=== PATIENT | female | born 1945 | race Caucasian/White ===

== ENCOUNTER 2018-08-19 07:11 | Inpatient (IN) ==
[2018-08-19] MEDS ORDERED: methylPREDNISolone 125 MG/2 ML VIAL IVP ONE (07:25)
[2018-08-19] MEDS ORDERED: cefTRIAXone 1,000 MG in Water for inj. (sterile) 20 ML 10 ML IVP ONE (07:25)
[2018-08-19] MEDS ORDERED: Ipratropium/Albuterol Neb 3 ML IH ONE (07:25)
[2018-08-19] MEDS ORDERED: Azithromycin 250 MG TABLET PO ONE (07:25)
[2018-08-19] MEDS ORDERED: *HR* LORazepam 2 MG/ML VIAL IVP ONE (07:28)
--- NOTE | 2018-08-19 07:33 | Emergency Department Note ---
Disposition Clinical Impression: Acute exacerbation of chronic obstructive airways disease, Acute respiratory failure with hypoxia Community acquired pneumonia Qualifiers: Laterality: unspecified laterality Qualified Code(s): J18.9 - Pneumonia, unspecified organism UTI (urinary tract infection) Qualifiers: Urinary tract infection type: acute cystitis Hematuria presence: without hematuria Qualified Code(s): N30.00 - Acute cystitis without hematuria Disposition: Admitted As Inpatient Condition: Fair Time of Disposition: 10:55 General Adult HPI - General Chief complaint: ED Shortness of Breath/Dyspnea Stated complaint: Difficult Breathing Time Seen by Provider: 08/19/18 07:12 Source: EMS Mode of arrival: ambulatory Limitations: no limitations Nursing Notes Reviewed: Yes Vital Signs Reviewed: Yes - History of Present Illness HPI Narrative: Ms Wellington is a 72yo female who comes in by EMS for the chief complaint of SOB. She states it has been getting worse since X-mas and she has had increasing SOB. She states that she hasn't been taking her nebulizer tx as directed but over the last few days has been increasing duonebs to QID. She states that she has been coughing more frequently, however, she is hardly brining up any sputum. She is unsure of what color it is when she does bring it up. She also states that she requires oxygen 24/7. She uses 2.5L at baseline but requires 3L when she tries to do anything. She is SOB no matter what activity she does and is SOB at rest. She states her anxiety has been very bad since x-mas as well and that she was exposed to a lot of people over the holidays and that the cold weather also seemed to bother her a lot. She denies any fever/chills. She states she is chronically nauseated. She had one episode of emesis this morning. Denies active chest pain/abd pain. She denies any sick contacts. She denies recent hospitilization in the last 90days. Pt Subjective Complaint: trouble breathing Pain Scale: 8 - Related Data Home Medications Medication Instructions Recorded Confirmed ALPRAZolam [Xanax 0.5 MG Tablet] 0.5 mg PO TID PRN 08/19/18 08/19/18 Albuterol Sulfate [Albuterol 1 - 2 puff IH Q4-6H PRN 08/19/18 08/19/18 Inhaler] Atorvastatin [Lipitor] 10 mg PO HS 12/27/18 12/27/18 Cholecalciferol (D-3) [Vitamin D] 4,000 unit PO DAILY 08/19/18 08/19/18 Gabapentin [Neurontin] 300 mg PO TID 08/19/18 08/19/18 Ipratropium/Albuterol Sulfate 3 ml IH QID PRN 08/19/18 08/19/18 [Iprat-Albut 0.5-3(2.5) mg/3 ml] Mometasone/Formoterol [Dulera 200 2 puff IH BID 08/19/18 08/19/18 Mcg/5 Mcg Inhaler] Montelukast [Singulair] 10 mg PO DAILY 08/19/18 08/19/18 Omeprazole [PriLOSEC] 40 mg PO DAILY 08/19/18 08/19/18 Allergies Allergy/AdvReac Type Severity Reaction Status Date / Time fluticasone Allergy Headache Verified 06/10/17 15:01 [From Advair Diskus] iodine Allergy Rash Verified 06/10/17 15:01 salmeterol Allergy Headache Verified 06/10/17 15:01 [From Advair Diskus] aspirin AdvReac can't take Verified 06/10/17 15:01 because of her asthma Constitutional: Reports: weakness. Denies: fever, chills Eyes: Reports: eye pain, vision change (secondary to cataracts) ENT ED: Reports: congestion Cardiovascular: Reports: dyspnea on exertion. Denies: chest pain, palpitations Respiratory: Reports: cough, dyspnea, wheezes. Denies: sputum production Gastrointestinal: Reports: nausea, vomiting. Denies: abdominal pain, diarrhea Genitourinary: Denies: urgency, dysuria Musculoskeletal: Reports: joint swelling Integumentary: Denies: lesions Neurological: Reports: weakness Psychiatric: Reports: anxiety, depression Endocrine: Reports: fatigue Hematological/Lymphatic: Denies: easy bleeding, easy bruising Past Medical History - Past Medical History Medical history: Reports: arthritis, asthma, COPD Psychiatric history: Reports: anxiety, bipolar, depression [employer] history: Reports: bilateral tubal ligation - Social History Smoking Status: Former smoker Smokeless Tobacco Status: No Alcohol use: Reports: none Drug use: Reports: none Physical Exam - General Limitations: no limitations General appearance: alert, anxious, other (sitting in bed, very anxious, has a difficult time speaking in full sentences, in mild respiratory distress) - Head Head exam: atraumatic, normocephalic - Eye Eye exam: Present: normal appearance. Absent: scleral icterus - ENT ENT exam: mucous membranes dry - Neck Neck exam: Present: normal inspection - Chest Chest inspection: Present: normal inspection, symmetric chest wall rise - Respiratory Respiratory exam: Present: respiratory distress, wheezes, accessory muscle use, prolonged expiratory phase - Cardiovascular Cardiovascular exam: Present: tachycardia, +S1, +S2. Absent: rubs, gallop, clicks, JVD - Abdominal Exam Abdominal exam: Present: soft, Non-Tender. Absent: tenderness, distention, guarding, rebound, rigidity - Extremities Exam Extremities exam: Present: tenderness, normal capillary refill, pedal edema, joint swelling, other (multiple defects in the joints from rheumatoid arthritis) - Expanded Lower Extremity Exam Lower leg exam: Present: other (no calf tenderness). Absent: Homans' sign - Neurological Exam Neurological exam: Present: alert, oriented X3, CN II-XII intact - Psychiatric Psychiatric exam: Present: anxious - Skin Skin exam: Present: warm, dry, intact Course - Reevaluation(s) Reevaluation #1: Re-evaluated the patient. She continues to have elevated RR and HR, however, she appears much less anxious and accessory mm of respiration use has decreased. She states that her anxiety feels much better. Time: 08:02 Vital Signs Temperature 98.9 F 08/19/18 07:16 Pulse Rate 124 08/19/18 07:16 Respiratory Rate 24 08/19/18 07:16 Blood Pressure 114/102 08/19/18 07:16 O2 Sat by Pulse Oximetry 93 08/19/18 07:16 Temperature 98.9 F 08/19/18 07:16 Pulse Rate 121 08/19/18 10:12 Respiratory Rate 23 08/19/18 10:12 Blood Pressure 162/84 08/19/18 10:12 O2 Sat by Pulse Oximetry 97 08/19/18 10:12 Oxygen Delivery Oxygen Delivery Nasal Cannula Medical Decision Making - MDM Narrative Medical decision making narrative: The patient is here for shortness of breath. She has chronic SOB secondary to end stage COPD. Her symptoms have been worsening since x-mas and she has had increasing SOB over the last few days which she attributes to her anxiety. She does tell ER staff that she lost her daughter a year ago on x-mas, which has brought on a lot of her troubles with her breathing. Pt meets sepsis criteria for HR/RR. Lactate elevated at 2.5. Bolus fluid given. Azithromycin/Rocephin given in the ER. Her CXR showed changes secondary to COPD and is negative for acute pneumonia. UA (+) for infxn with nitrates, leuk esterase and WBC. D-dimer was elevated and CT angiogram performed, negative for PE. She will be admitted to medicine service. Accepting hospitalist is Dr Granados. - Medical Records Medical records reviewed: Yes I reviewed the patient's medical records. - Lab Data Lab results reviewed: Yes I reviewed the patient's lab results. Result diagrams: 08/19/18 07:38 08/19/18 07:38 Lab Results 08/19/18 08/19/18 08/19/18 Range/Units 07:38 07:38 07:38 WBC 7.9 (4.3-11.1) K/mcL RBC 4.14 (3.82-4.97) M/mcL Hgb 11.8 (11.5-15.4) g/dL Hct 37.3 (35.3-44.9) % MCV 90.1 (83.0-100.0) fL MCH 28.5 (28.0-33.3) pg MCHC 31.6 (31.6-35.5) g/dL RDW 14.2 (11.5-14.5) % Plt Count 294 (140-400) K/mcL MPV 9.5 (9.4-12.4) fL Immature Gran % 0.3 (0-4) % Seg Neutrophils % 87.6 % Lymphocytes % 6.8 % Monocytes % 5.2 % Eosinophils % 0.0 % Basophils % 0.1 % Neutrophils # 6.9 (1.6-8.9) K/mcL Lymphocytes # 0.5 L (0.6-4.6) K/mcL Monocytes # 0.4 (0.0-1.3) K/mcL Eosinophils # 0.0 (0.0-0.6) K/mcL Basophils # 0.0 (0.0-0.2) K/mcL D-Dimer (0-500) ng/mLFEU Sodium 136 137 (136-145) mEq/L Potassium 4.5 4.5 (3.5-5.1) mEq/L Chloride 102 102 (98-107) mEq/L Carbon Dioxide 27 26 (23-29) mEq/L BUN 17 16 (8-23) mg/dL Creatinine 0.63 0.64 (0.60-1.20) mg/dL Est GFR ( Amer) > 60 > 60 (> 60) Est GFR (Non-Af Amer) > 60 > 60 (> 60) BUN/Creatinine Ratio 27 H 25 (6-26) Glucose 177 H 177 H (70-105) mg/dL Calculated Osmolality 288 290 (280-300) Lactic Acid (0.5-2.2) mmol/L Calcium 10.4 H 10.4 H (8.6-10.3) mg/dL Total Bilirubin 0.3 (0.3-1.0) mg/dL AST 14 (13-39) Units/L ALT 15 (7-52) Units/L Alkaline Phosphatase 97 (34-104) Units/L Troponin I < 0.03 (< 0.04) ng/mL B-Natriuretic Peptide (Less than 100) pg/mL Serum Total Protein 6.9 (6.4-8.9) g/dL Albumin 4.3 (3.5-5.7) g/dL Globulin 2.6 (2.4-3.5) g/dL Albumin/Globulin Ratio 1.7 (1.1-2.2) Urine Color (Yellow) Urine Clarity (Clear) Urine pH (5.0-8.0) pH Units Ur Specific [place] (1.010-1.025) Urine Protein (Neg-Trace) mg/dL Urine Glucose (UA) (Normal) mg/dL Urine Ketones (Negative) mg/dL Urine Blood (Negative) Urine Nitrite (Negative) Urine Bilirubin (Negative) Urine Urobilinogen (Normal) mg/dL Ur Leukocyte Esterase (Negative) Urine Microscopic RBC (0-3) per hpf Urine Microscopic WBC (0-3) per hpf Ur Squamous Epith Cells (None-Few) per lpf Urine Bacteria (None-Few) per hpf Hyaline Casts (None-Few) per lpf Ur Culture Indicated? (NO) 08/19/18 08/19/18 08/19/18 Range/Units 07:38 07:38 07:49 WBC (4.3-11.1) K/mcL RBC (3.82-4.97) M/mcL Hgb (11.5-15.4) g/dL Hct (35.3-44.9) % MCV (83.0-100.0) fL MCH (28.0-33.3) pg MCHC (31.6-35.5) g/dL RDW (11.5-14.5) % Plt Count (140-400) K/mcL MPV (9.4-12.4) fL Immature Gran % (0-4) % Seg Neutrophils % % Lymphocytes % % Monocytes % % Eosinophils % % Basophils % % Neutrophils # (1.6-8.9) K/mcL Lymphocytes # (0.6-4.6) K/mcL Monocytes # (0.0-1.3) K/mcL Eosinophils # (0.0-0.6) K/mcL Basophils # (0.0-0.2) K/mcL D-Dimer 860 H (0-500) ng/mLFEU Sodium (136-145) mEq/L Potassium (3.5-5.1) mEq/L Chloride (98-107) mEq/L Carbon Dioxide (23-29) mEq/L BUN (8-23) mg/dL Creatinine (0.60-1.20) mg/dL Est GFR ( Amer) (> 60) Est GFR (Non-Af Amer) (> 60) BUN/Creatinine Ratio (6-26) Glucose (70-105) mg/dL Calculated Osmolality (280-300) Lactic Acid 2.5 H (0.5-2.2) mmol/L Calcium (8.6-10.3) mg/dL Total Bilirubin (0.3-1.0) mg/dL AST (13-39) Units/L ALT (7-52) Units/L Alkaline Phosphatase (34-104) Units/L Troponin I (< 0.04) ng/mL B-Natriuretic Peptide 38 (Less than 100) pg/mL Serum Total Protein (6.4-8.9) g/dL Albumin (3.5-5.7) g/dL Globulin (2.4-3.5) g/dL Albumin/Globulin Ratio (1.1-2.2) Urine Color (Yellow) Urine Clarity (Clear) Urine pH (5.0-8.0) pH Units Ur Specific [place] (1.010-1.025) Urine Protein (Neg-Trace) mg/dL Urine Glucose (UA) (Normal) mg/dL Urine Ketones (Negative) mg/dL Urine Blood (Negative) Urine Nitrite (Negative) Urine Bilirubin (Negative) Urine Urobilinogen (Normal) mg/dL Ur Leukocyte Esterase (Negative) Urine Microscopic RBC (0-3) per hpf Urine Microscopic WBC (0-3) per hpf Ur Squamous Epith Cells (None-Few) per lpf Urine Bacteria (None-Few) per hpf Hyaline Casts (None-Few) per lpf Ur Culture Indicated? (NO) 08/19/18 08/19/18 Range/Units 09:56 10:05 WBC (4.3-11.1) K/mcL RBC (3.82-4.97) M/mcL Hgb (11.5-15.4) g/dL Hct (35.3-44.9) % MCV (83.0-100.0) fL MCH (28.0-33.3) pg MCHC (31.6-35.5) g/dL RDW (11.5-14.5) % Plt Count (140-400) K/mcL MPV (9.4-12.4) fL Immature Gran % (0-4) % Seg Neutrophils % % Lymphocytes % % Monocytes % % Eosinophils % % Basophils % % Neutrophils # (1.6-8.9) K/mcL Lymphocytes # (0.6-4.6) K/mcL Monocytes # (0.0-1.3) K/mcL Eosinophils # (0.0-0.6) K/mcL Basophils # (0.0-0.2) K/mcL D-Dimer (0-500) ng/mLFEU Sodium (136-145) mEq/L Potassium (3.5-5.1) mEq/L Chloride (98-107) mEq/L Carbon Dioxide (23-29) mEq/L BUN (8-23) mg/dL Creatinine (0.60-1.20) mg/dL Est GFR ( Amer) (> 60) Est GFR (Non-Af Amer) (> 60) BUN/Creatinine Ratio (6-26) Glucose (70-105) mg/dL Calculated Osmolality (280-300) Lactic Acid 3.0 H (0.5-2.2) mmol/L Calcium (8.6-10.3) mg/dL Total Bilirubin (0.3-1.0) mg/dL AST (13-39) Units/L ALT (7-52) Units/L Alkaline Phosphatase (34-104) Units/L Troponin I (< 0.04) ng/mL B-Natriuretic Peptide (Less than 100) pg/mL Serum Total Protein (6.4-8.9) g/dL Albumin (3.5-5.7) g/dL Globulin (2.4-3.5) g/dL Albumin/Globulin Ratio (1.1-2.2) Urine Color Yellow (Yellow) Urine Clarity Clear (Clear) Urine pH 6.5 (5.0-8.0) pH Units Ur Specific [place] > 1.030 H (1.010-1.025) Urine Protein Negative (Neg-Trace) mg/dL Urine Glucose (UA) Normal (Normal) mg/dL Urine Ketones Negative (Negative) mg/dL Urine Blood Negative (Negative) Urine Nitrite Positive A (Negative) Urine Bilirubin Negative (Negative) Urine Urobilinogen Normal (Normal) mg/dL Ur Leukocyte Esterase Moderate H (Negative) Urine Microscopic RBC 0-3 (0-3) per hpf Urine Microscopic WBC 30-50 H (0-3) per hpf Ur Squamous Epith Cells None Seen (None-Few) per lpf Urine Bacteria Few (None-Few) per hpf Hyaline Casts None Seen (None-Few) per lpf Ur Culture Indicated? YES A (NO) - Radiology Data Radiology results reviewed: Yes I reviewed the patient's radiology results. - EKG Data EKG #1 EKG shows normal: sinus rhythm Rate: tachycardia Rhythm: NSR, PVC's [place]/QRS: normal When compared to previous EKG there are: no significant changes Interpretation: no acute changes Attestation Statement - Attestation Attestation: I, De Strickland DO, examined this patient [id number] and my medical decision-making was reviewed with True Doshi PGY-1, Resident Physician. I agree with the documented findings, disposition and treatment plan as described except to the extent set forth below. Please see my progress notes for details.
[2018-08-19 07:46] LABS: Basophils % 0.1 %; Hematocrit 37.3 % (35.3-44.9); Hemoglobin 11.8 g/dL (11.5-15.4); Immature Granulocytes % 0.3 % (0-4); Lymphocytes # 0.5 K/mcL (0.6-4.6); Lymphocytes % 6.8 %; Mean Corpuscular HGB Conc 31.6 g/dL (31.6-35.5); Mean Corpuscular Hemoglobin 28.5 pg (28.0-33.3); Mean Corpuscular Volume 90.1 fL (83.0-100.0); Mean Platelet Volume 9.5 fL (9.4-12.4); Monocytes # 0.4 K/mcL (0.0-1.3); Monocytes % 5.2 %; Neutrophils # 6.9 K/mcL (1.6-8.9); Platelet Count 294 K/mcL (140-400); Red Blood Count 4.14 M/mcL (3.82-4.97); Red Cell Distribution Width 14.2 % (11.5-14.5); Segmented Neutrophils % 87.6 %
--- NOTE | 2018-08-19 07:56 | Emergency Department Note ---
Disposition Clinical Impression: Acute exacerbation of chronic obstructive airways disease, Community acquired pneumonia, Acute respiratory failure with hypoxia Disposition: Admitted As Inpatient Condition: Fair Referrals: Slim Whitmore DO [Resident] - Forms: ED Satisfaction Letter Time of Disposition: 10:58 General Adult HPI - General Chief complaint: ED Shortness of Breath/Dyspnea Stated complaint: Difficult Breathing Time Seen by Provider: 08/19/18 07:12 Source: EMS Mode of arrival: ambulatory Limitations: no limitations - History of Present Illness Pain Scale: 8 - Related Data Home Medications Medication Instructions Recorded Confirmed ALPRAZolam [Xanax 0.5 MG Tablet] 0.5 mg PO TID PRN 08/19/18 08/19/18 Albuterol Sulfate [Albuterol 1 - 2 puff IH Q4-6H PRN 08/19/18 08/19/18 Inhaler] Atorvastatin [Lipitor] 10 mg PO HS 08/19/18 08/19/18 Cholecalciferol (D-3) [Vitamin D] 4,000 unit PO DAILY 08/19/18 08/19/18 Gabapentin [Neurontin] 300 mg PO TID 08/19/18 08/19/18 Ipratropium/Albuterol Sulfate 3 ml IH QID PRN 08/19/18 08/19/18 [Iprat-Albut 0.5-3(2.5) mg/3 ml] Mometasone/Formoterol [Dulera 200 2 puff IH BID 08/19/18 08/19/18 Mcg/5 Mcg Inhaler] Montelukast [Singulair] 10 mg PO DAILY 08/19/18 08/19/18 Omeprazole [PriLOSEC] 40 mg PO DAILY 08/19/18 08/19/18 Allergies Allergy/AdvReac Type Severity Reaction Status Date / Time fluticasone Allergy Headache Verified 06/10/17 15:01 [From Advair Diskus] iodine Allergy Rash Verified 06/10/17 15:01 salmeterol Allergy Headache Verified 06/10/17 15:01 [From Advair Diskus] aspirin AdvReac can't take Verified 06/10/17 15:01 because of her asthma Constitutional: Reports: weakness. Denies: fever, chills Eyes: Reports: eye pain, vision change (secondary to cataracts) ENT ED: Reports: congestion Cardiovascular: Reports: dyspnea on exertion. Denies: chest pain, palpitations Respiratory: Reports: cough, dyspnea, wheezes. Denies: sputum production Gastrointestinal: Reports: nausea, vomiting. Denies: abdominal pain, diarrhea Genitourinary: Denies: urgency, dysuria Musculoskeletal: Reports: joint swelling Integumentary: Denies: lesions Neurological: Reports: weakness Psychiatric: Reports: anxiety, depression Endocrine: Reports: fatigue Hematological/Lymphatic: Denies: easy bleeding, easy bruising Past Medical History - Past Medical History Medical history: Reports: arthritis, asthma, COPD Psychiatric history: Reports: anxiety, bipolar, depression [employer] history: Reports: bilateral tubal ligation - Social History Smoking Status: Former smoker Smokeless Tobacco Status: No Alcohol use: Reports: none Drug use: Reports: none Physical Exam - General Limitations: no limitations General appearance: alert, anxious, other (sitting in bed, very anxious, has a difficult time speaking in full sentences, in mild respiratory distress) Course Vital Signs Temperature 98.9 F 08/19/18 07:16 Pulse Rate 124 08/19/18 07:16 Respiratory Rate 24 08/19/18 07:16 Blood Pressure 114/102 08/19/18 07:16 O2 Sat by Pulse Oximetry 93 08/19/18 07:16 Temperature 98.9 F 08/19/18 07:16 Pulse Rate 121 08/19/18 10:12 Respiratory Rate 23 08/19/18 10:12 Blood Pressure 162/84 08/19/18 10:12 O2 Sat by Pulse Oximetry 97 08/19/18 10:12 Oxygen Delivery Oxygen Delivery Nasal Cannula Medical Decision Making - Lab Data Result diagrams: 08/19/18 07:38 08/19/18 07:38 Lab Results 08/19/18 08/19/18 08/19/18 Range/Units 07:38 07:38 07:38 WBC 7.9 (4.3-11.1) K/mcL RBC 4.14 (3.82-4.97) M/mcL Hgb 11.8 (11.5-15.4) g/dL Hct 37.3 (35.3-44.9) % MCV 90.1 (83.0-100.0) fL MCH 28.5 (28.0-33.3) pg MCHC 31.6 (31.6-35.5) g/dL RDW 14.2 (11.5-14.5) % Plt Count 294 (140-400) K/mcL MPV 9.5 (9.4-12.4) fL Immature Gran % 0.3 (0-4) % Seg Neutrophils % 87.6 % Lymphocytes % 6.8 % Monocytes % 5.2 % Eosinophils % 0.0 % Basophils % 0.1 % Neutrophils # 6.9 (1.6-8.9) K/mcL Lymphocytes # 0.5 L (0.6-4.6) K/mcL Monocytes # 0.4 (0.0-1.3) K/mcL Eosinophils # 0.0 (0.0-0.6) K/mcL Basophils # 0.0 (0.0-0.2) K/mcL D-Dimer (0-500) ng/mLFEU Sodium 136 137 (136-145) mEq/L Potassium 4.5 4.5 (3.5-5.1) mEq/L Chloride 102 102 (98-107) mEq/L Carbon Dioxide 27 26 (23-29) mEq/L BUN 17 16 (8-23) mg/dL Creatinine 0.63 0.64 (0.60-1.20) mg/dL Est GFR ( Amer) > 60 > 60 (> 60) Est GFR (Non-Af Amer) > 60 > 60 (> 60) BUN/Creatinine Ratio 27 H 25 (6-26) Glucose 177 H 177 H (70-105) mg/dL Calculated Osmolality 288 290 (280-300) Lactic Acid (0.5-2.2) mmol/L Calcium 10.4 H 10.4 H (8.6-10.3) mg/dL Total Bilirubin 0.3 (0.3-1.0) mg/dL AST 14 (13-39) Units/L ALT 15 (7-52) Units/L Alkaline Phosphatase 97 (34-104) Units/L Troponin I < 0.03 (< 0.04) ng/mL B-Natriuretic Peptide (Less than 100) pg/mL Serum Total Protein 6.9 (6.4-8.9) g/dL Albumin 4.3 (3.5-5.7) g/dL Globulin 2.6 (2.4-3.5) g/dL Albumin/Globulin Ratio 1.7 (1.1-2.2) Urine Color (Yellow) Urine Clarity (Clear) Urine pH (5.0-8.0) pH Units Ur Specific [place] (1.010-1.025) Urine Protein (Neg-Trace) mg/dL Urine Glucose (UA) (Normal) mg/dL Urine Ketones (Negative) mg/dL Urine Blood (Negative) Urine Nitrite (Negative) Urine Bilirubin (Negative) Urine Urobilinogen (Normal) mg/dL Ur Leukocyte Esterase (Negative) Urine Microscopic RBC (0-3) per hpf Urine Microscopic WBC (0-3) per hpf Ur Squamous Epith Cells (None-Few) per lpf Urine Bacteria (None-Few) per hpf Hyaline Casts (None-Few) per lpf Ur Culture Indicated? (NO) 08/19/18 08/19/18 08/19/18 Range/Units 07:38 07:38 07:49 WBC (4.3-11.1) K/mcL RBC (3.82-4.97) M/mcL Hgb (11.5-15.4) g/dL Hct (35.3-44.9) % MCV (83.0-100.0) fL MCH (28.0-33.3) pg MCHC (31.6-35.5) g/dL RDW (11.5-14.5) % Plt Count (140-400) K/mcL MPV (9.4-12.4) fL Immature Gran % (0-4) % Seg Neutrophils % % Lymphocytes % % Monocytes % % Eosinophils % % Basophils % % Neutrophils # (1.6-8.9) K/mcL Lymphocytes # (0.6-4.6) K/mcL Monocytes # (0.0-1.3) K/mcL Eosinophils # (0.0-0.6) K/mcL Basophils # (0.0-0.2) K/mcL D-Dimer 860 H (0-500) ng/mLFEU Sodium (136-145) mEq/L Potassium (3.5-5.1) mEq/L Chloride (98-107) mEq/L Carbon Dioxide (23-29) mEq/L BUN (8-23) mg/dL Creatinine (0.60-1.20) mg/dL Est GFR ( Amer) (> 60) Est GFR (Non-Af Amer) (> 60) BUN/Creatinine Ratio (6-26) Glucose (70-105) mg/dL Calculated Osmolality (280-300) Lactic Acid 2.5 H (0.5-2.2) mmol/L Calcium (8.6-10.3) mg/dL Total Bilirubin (0.3-1.0) mg/dL AST (13-39) Units/L ALT (7-52) Units/L Alkaline Phosphatase (34-104) Units/L Troponin I (< 0.04) ng/mL B-Natriuretic Peptide 38 (Less than 100) pg/mL Serum Total Protein (6.4-8.9) g/dL Albumin (3.5-5.7) g/dL Globulin (2.4-3.5) g/dL Albumin/Globulin Ratio (1.1-2.2) Urine Color (Yellow) Urine Clarity (Clear) Urine pH (5.0-8.0) pH Units Ur Specific [place] (1.010-1.025) Urine Protein (Neg-Trace) mg/dL Urine Glucose (UA) (Normal) mg/dL Urine Ketones (Negative) mg/dL Urine Blood (Negative) Urine Nitrite (Negative) Urine Bilirubin (Negative) Urine Urobilinogen (Normal) mg/dL Ur Leukocyte Esterase (Negative) Urine Microscopic RBC (0-3) per hpf Urine Microscopic WBC (0-3) per hpf Ur Squamous Epith Cells (None-Few) per lpf Urine Bacteria (None-Few) per hpf Hyaline Casts (None-Few) per lpf Ur Culture Indicated? (NO) 08/19/18 08/19/18 Range/Units 09:56 10:05 WBC (4.3-11.1) K/mcL RBC (3.82-4.97) M/mcL Hgb (11.5-15.4) g/dL Hct (35.3-44.9) % MCV (83.0-100.0) fL MCH (28.0-33.3) pg MCHC (31.6-35.5) g/dL RDW (11.5-14.5) % Plt Count (140-400) K/mcL MPV (9.4-12.4) fL Immature Gran % (0-4) % Seg Neutrophils % % Lymphocytes % % Monocytes % % Eosinophils % % Basophils % % Neutrophils # (1.6-8.9) K/mcL Lymphocytes # (0.6-4.6) K/mcL Monocytes # (0.0-1.3) K/mcL Eosinophils # (0.0-0.6) K/mcL Basophils # (0.0-0.2) K/mcL D-Dimer (0-500) ng/mLFEU Sodium (136-145) mEq/L Potassium (3.5-5.1) mEq/L Chloride (98-107) mEq/L Carbon Dioxide (23-29) mEq/L BUN (8-23) mg/dL Creatinine (0.60-1.20) mg/dL Est GFR ( Amer) (> 60) Est GFR (Non-Af Amer) (> 60) BUN/Creatinine Ratio (6-26) Glucose (70-105) mg/dL Calculated Osmolality (280-300) Lactic Acid 3.0 H (0.5-2.2) mmol/L Calcium (8.6-10.3) mg/dL Total Bilirubin (0.3-1.0) mg/dL AST (13-39) Units/L ALT (7-52) Units/L Alkaline Phosphatase (34-104) Units/L Troponin I (< 0.04) ng/mL B-Natriuretic Peptide (Less than 100) pg/mL Serum Total Protein (6.4-8.9) g/dL Albumin (3.5-5.7) g/dL Globulin (2.4-3.5) g/dL Albumin/Globulin Ratio (1.1-2.2) Urine Color Yellow (Yellow) Urine Clarity Clear (Clear) Urine pH 6.5 (5.0-8.0) pH Units Ur Specific [place] > 1.030 H (1.010-1.025) Urine Protein Negative (Neg-Trace) mg/dL Urine Glucose (UA) Normal (Normal) mg/dL Urine Ketones Negative (Negative) mg/dL Urine Blood Negative (Negative) Urine Nitrite Positive A (Negative) Urine Bilirubin Negative (Negative) Urine Urobilinogen Normal (Normal) mg/dL Ur Leukocyte Esterase Moderate H (Negative) Urine Microscopic RBC 0-3 (0-3) per hpf Urine Microscopic WBC 30-50 H (0-3) per hpf Ur Squamous Epith Cells None Seen (None-Few) per lpf Urine Bacteria Few (None-Few) per hpf Hyaline Casts None Seen (None-Few) per lpf Ur Culture Indicated? YES A (NO) Attestation Statement - Attestation Attestation: I, De Strickland DO, examined this patient [id number] and my medical decision-making was reviewed with True Doshi PGY-1, Resident Physician. I agree with the documented findings, disposition and treatment plan as described except to the extent set forth below. Please see my progress notes for details. 72-year-old female presents emergency room for evaluation of shortness of breath chest tightness and palpitations. Patient does not have any specific cardiac history but does have known pulmonary issues including COPD. She has not been admitted for this since February of last year. She was initially tachycardic and tachypnea, arrival. She denies any falls trauma or injury. She is alert she is oriented and speaking full sentences. She denies any recent fevers or chills. Denies any nausea vomiting or diarrhea. Has no headache or vision change. Patient is showing no acute signs of neurologic deficit. Her pulse ox is normal. She was provided with breathing treatments and transit. She does appear to be very anxious on arrival here. After an initial screening physical exam is completed asked the patient why she decided to come in the emergency room today and she went on a tangent about multiple family members who have , her dislike of the holidays, how somebody on this exact day one year ago. Initial concern was for cardiac and pulmonary related etiology but most of her symptoms could be exacerbated by what appears to be anxiety and holiday related stress and depression. Patient will have workup completed for pulmonary issues including COPD. Breathing treatments steroids first doses of antibiotics will be started here secondary to her described productive cough. She also EKG CBC chemistry troponin and workup completed this time for cardiac related etiology including chest tightness. Disposition determined once a full workup and treatment course I been established. Patient is otherwise currently stable despite an escalated described presentation at this point. We will continue monitoring in emergency room until the disposition is determined. See detailed documentation the physical exam, medical intervention, medical decision-making disposition the resident physician's note. 0900 Patient is been discussed and reviewed with the hospitals. We are waiting for CT angiography to be completed as well as urinalysis prior to transitioning the patient to the floor. Patient does have a described iodine allergy. After lengthy discussion at the bedside was determined that the patient had burning sensation in the IV site last time when she had it. She did not have any swelling rashes erythema or shortness of breath. Patient will be admitted after the CT angiography is completed. We will continue monitoring in emergency room. No other additional concerns or issues are noted. The hospitalist Dr. Granados will be following the patient during the emergency room evaluation. 1045 CT angiography the chest is unremarkable for acute pulmonary emboli. Patient is otherwise clinically stable. Admission process will be established for COPD exacerbation with possible pneumonia. Patient is otherwise currently stable.
[2018-08-19] MEDS ORDERED: Aspirin 81 MG TAB.CHEW PO STA (07:59)
[2018-08-19 08:06] LABS: Troponin I < 0.03 ng/mL (< 0.04)
[2018-08-19 08:07] LABS: Alanine Aminotransferase 15 Units/L (7-52); Albumin 4.3 g/dL (3.5-5.7); Albumin/Globulin Ratio 1.7 (1.1-2.2); Alkaline Phosphatase 97 Units/L (34-104); Aspartate Amino Transferase 14 Units/L (13-39); BUN/Creatinine Ratio 27 (6-26); Bilirubin,Total 0.3 mg/dL (0.3-1.0); Blood Urea Nitrogen 17 mg/dL (8-23); Calcium 10.4 mg/dL (8.6-10.3); Carbon Dioxide 27 mEq/L (23-29); Chloride 102 mEq/L (98-107); Globulin 2.6 g/dL (2.4-3.5); Glucose 177 mg/dL (70-105); Osmolality,Calculated 288 (280-300); Potassium 4.5 mEq/L (3.5-5.1); Sodium 136 mEq/L (136-145); Total Protein 6.9 g/dL (6.4-8.9); eGFR For Non-African Americans > 60 (> 60)
[2018-08-19 08:10] LABS: BUN/Creatinine Ratio 25 (6-26); Blood Urea Nitrogen 16 mg/dL (8-23); Calcium 10.4 mg/dL (8.6-10.3); Carbon Dioxide 26 mEq/L (23-29); Chloride 102 mEq/L (98-107); Glucose 177 mg/dL (70-105); Osmolality,Calculated 290 (280-300); Potassium 4.5 mEq/L (3.5-5.1); Sodium 137 mEq/L (136-145); eGFR For Non-African Americans > 60 (> 60)
[2018-08-19] MEDS ORDERED: Isovue-370 500 ML INFUS..BTL IV ONE (08:38)
[2018-08-19] MEDS ORDERED: 0.9 % Sodium Chloride 1,000 ML IVC ONE (08:39)
[2018-08-19] MEDS ORDERED: Naloxone 0.4 MG/ML INJ IVP PRN ×2 (08:49→09:57)
[2018-08-19] MEDS ORDERED: Ipratropium/Albuterol Neb 3 ML IH SCH ×2 (09:15→17:00)
--- NOTE | 2018-08-19 09:26 | Internal Med History&Physical ---
Addendum entered and electronically signed by Roman Muir 08/23/18 15:44: I am the Author of this notes Addendum entered and electronically signed by Ashanti Granados MD 08/19/18 14:17: I saw and examined this patient independently, and my medical decision making was reviewed with the Resident on 2017. I agree with the documented findings, assessment and treatment plan as described in the H&P today. Original Note: <Ashanti Granados - Last Filed: 08/19/18 10:59> Date of Encounter: 08/19/18 Internal Medicine - H&P: HPI History of present illness: Ms. Wellington is a 72 year old female Internal Medicine - H&P: Meds ALPRAZolam [Xanax 0.5 MG Tablet] 0.5 mg PO TID PRN 08/19/18 [History] Albuterol Sulfate [Albuterol Inhaler] 1 - 2 puff IH Q4-6H PRN 08/19/18 [History] Atorvastatin [Lipitor] 10 mg PO HS 08/19/18 [History] Cholecalciferol (D-3) [Vitamin D] 4,000 unit PO DAILY 08/19/18 [History] Gabapentin [Neurontin] 300 mg PO TID 08/19/18 [History] Ipratropium/Albuterol Sulfate [Iprat-Albut 0.5-3(2.5) mg/3 ml] 3 ml IH QID PRN 08/19/18 [History] Mometasone/Formoterol [Dulera 200 Mcg/5 Mcg Inhaler] 2 puff IH BID 08/19/18 [History] Montelukast [Singulair] 10 mg PO DAILY 08/19/18 [History] Omeprazole [PriLOSEC] 40 mg PO DAILY 08/19/18 [History] 3 Allergy/AdvReac Type Severity Reaction Status Date / Time fluticasone Allergy Headache Verified 06/10/17 15:01 [From Advair Diskus] iodine Allergy Rash Verified 06/10/17 15:01 salmeterol Allergy Headache Verified 06/10/17 15:01 [From Advair Diskus] aspirin AdvReac can't take Verified 06/10/17 15:01 because of her asthma All Systems PM: A 10-system review of systems was performed and is negative for pertinent findings except as documented above in the HPI. - Constitutional Vitals: Temp Pulse Resp BP Pulse Ox 98.9 F 121 23 162/84 97 08/19/18 07:16 08/19/18 10:12 08/19/18 10:12 08/19/18 10:12 08/19/18 10:12 Internal Med - H&P Results - Labs CBC & Chem 7: 08/19/18 07:38 08/19/18 07:38 Labs: Short CBC 08/19/18 Range/Units 07:38 WBC 7.9 (4.3-11.1) K/mcL Hgb 11.8 (11.5-15.4) g/dL Hct 37.3 (35.3-44.9) % Plt Count 294 (140-400) K/mcL Neutrophils # 6.9 (1.6-8.9) K/mcL BMP 08/19/18 08/19/18 07:38 07:38 Sodium 136 137 Potassium 4.5 4.5 Chloride 102 102 Carbon Dioxide 27 26 BUN 17 16 Creatinine 0.63 0.64 Glucose 177 H 177 H Calcium 10.4 H 10.4 H Cardiac Enzymes 08/19/18 Range/Units 07:38 Troponin I < 0.03 (< 0.04) ng/mL Liver Function 08/19/18 Range/Units 07:38 Total Bilirubin 0.3 (0.3-1.0) mg/dL AST 14 (13-39) Units/L ALT 15 (7-52) Units/L Alkaline Phosphatase 97 (34-104) Units/L Albumin 4.3 (3.5-5.7) g/dL Urine 08/19/18 Range/Units 10:05 Urine Color Yellow (Yellow) Urine Clarity Clear (Clear) Urine pH 6.5 (5.0-8.0) pH Units Ur Specific Robertson > 1.030 H (1.010-1.025) Urine Protein Negative (Neg-Trace) mg/dL Urine Glucose (UA) Normal (Normal) mg/dL - Impressions ITS Impressions Chest X-Ray 08/19/18 07:14 IMPRESSION: 1. No active pulmonary disease. 2. COPD. D/ / Chadwick Ybarra MD / Chadwick Ybarra MD Interpreting Provider: Chadwick Ybarra MD Chest CTA 08/19/18 08:38 IMPRESSION: No evidence of pulmonary embolism or acute pulmonary abnormality. Moderate to severe emphysematous changes. Moderate hiatal hernia with moderate to large amount of GERD. Stable benign nodule in the posterior left upper lobe. Nodule has been unchanged at least since 2013. D/ / Kwaku Mayorga MD / Kwaku Mayorga MD Interpreting Provider: Kwaku Mayorga MD - Assessment and plan (1) Acute and chronic respiratory failure with hypoxia Current Visit: Yes Status: Acute - Time Spent With Patient Total time spent is greater than 50% in coordination of care (as documented) at patient's floor/unit and/or counseling patient: <Roman Muir P - Last Filed: 08/19/18 11:15> Date of Encounter: 08/19/18 Time of Encounter: 09:00 Internal Medicine - H&P: HPI Chief complaint: Shorness of breath Admitted From: Home Plans for Post Hospital Care: Home History of present illness: Ms. Wellington is a 72 year old female with past medical history of COPD with home oxygen, hyperlipidemia GERD, former smoker, Anxiety, depression, bipolar disorder, Neuropathy was presented to ED for aggravated shortness of breath, cough without sputum for last few days. She admitted nausea and one episode of vomiting this morning. She is a chronic patient of COPD with 2.5 unit of home oxygen and medications duelera, singular, nebulizer ( ipra+ albuterol). She stated that her symptoms get worse after she met many family members during [place], she further described that couple of members have flulike symptoms as well. The patient stresses that she does not have any history of heart attack /CAD or any h/o heart failure in the past , but she does have mitral valve prolapse without any symptom.The patient denied any fever, chills, severe chest pain , palpitation , syncope , calf swelling, dizziness. She did not have any aggravated COPD symptoms since this February. The chest x-ray done in ED did not show any evidence of pneumonia or infiltration. The white cell count including neutrophil was normal. The troponin was negative, lactic acid was 2.5 and d- dimer was 860. CTA chest done in ED did not find any evidence of pulmonary embolism or evidence of focal pneumonia/ evidence of aspiration.. Her vitalsare : no temperature for last 5 hours, her heart rate 124, respiration rate 20, blood pressure 114/102, saturation 98% with 3.5 L oxygen. During my bedside visit, she was sitting comfortably on the bed, was not in acute distress but looked a little bit tachypneic, she admitted cough without sputum that is triggering her chest tightness and shortness of breath ,no any complaints of chest pain, fever. Past Med Surg Social Fam HX - Past Medical History Medical history: arthritis, asthma, COPD Additional medical history: Neck/ Back injury. History of left lung collaspe. Continuous oxygen 2 to 3 liters. Mitral valve prolapse Psychiatric history: anxiety, bipolar, depression - Past Surgical History Additional surgical history: tubal, all teeth pulled - Social History Smoking Status: Former smoker Smokeless Tobacco Status: No Alcohol use: none Drug use: none All Systems PM: A 10-system review of systems was performed and is negative for pertinent findings except as documented above in the HPI. - Constitutional Constitutional: lethargy, malaise, no anorexia, no chills, no excessive sweating, no falls, no night sweats, no weight gain, no weight loss - EENT Eyes: no blurry vision, no change in vision, no loss of vision, no pain Nose, mouth and throat: no dry mouth, no facial pain, no hoarseness, no mouth le sions, no nasal congestion, no neck pain, no post-nasal drip, no sore throat, no throat swelling - Cardiovascular Cardiovascular ROS IM: dyspnea on exertion, edema, orthopnea, no chest pain, no diaphoresis, no lightheadedness, no palpitations, no syncope - Respiratory Respiratory: cough, dyspnea, dyspnea on exertion, wheezing, chest congestion, no hemoptysis, no snoring, no stridor, no pain on inspiration, no excessive phlegm production, no pain with cough - Gastrointestinal Gastrointestinal: no abdominal pain, no bloating, no change in bowel habits, no heartburn, no hematochezia - Genitourinary Genitourinary: no breast change in shape, no dysuria, no flank pain, no hot flashes, no nocturia, no vaginal discharge - Musculoskeletal Musculoskeletal ROS IM: arthralgias, deformity, joint swelling, stiffness - Neurological Neurological ROS: no abnormal gait, no abnormal movements, no abnormal speech, no behavioral changes, no convulsions, no lack of coordination - Psychiatric Psychiatric: anxiety, mood swings, no auditory hallucinations, no behavioral changes, no confusion, no difficulty concentrating, no panic attacks - Endocrine Endocrine IM: no cold intolerance, no deeping of the voice, no flushing - Hematologic/Lymphatic Hematologic/Lymphatic: no easy bleeding, no lymphadenopathy - Allergic/Immunologic Allergic/Immunologic: no tongue swelling, no uticaria, no wheezing - Constitutional Vitals: Temp Pulse Resp BP Pulse Ox 98.9 F 124 20 114/102 98 08/19/18 07:16 08/19/18 07:16 08/19/18 07:56 08/19/18 07:16 08/19/18 07:56 General appearance: Present: mild distress, A&O X 3, answers questions appro priately Exam: - General Limitations: no limitations General appearance: alert, anxious, other (sitting in bed, very anxious, has a difficult time speaking in full sentences, in mild respiratory distress) - Head Head exam: atraumatic, normocephalic - Eye Eye exam: Present: normal appearance. Absent: scleral icterus - ENT ENT exam: mucous membranes dry - Neck Neck exam: Present: normal inspection - Chest Chest inspection: Present: normal inspection, symmetric chest wall rise - Respiratory Respiratory exam: Equal air entry both side, diminished chest expansion, increased anteroposterior diameter, diminished breath sound bilaterally, tachypnea ,rhonchi presents both side, prolonged expiratory sounds, occasional crepitation right >left - Cardiovascular Cardiovascular exam: Present: tachycardia, +S1, +S2. Absent: rubs, gallop, clicks, JVD - Abdominal Exam Abdominal exam: Present: soft, Non-Tender. Absent: tenderness, distention, guar ding, rebound, rigidity - Extremities Exam Extremities exam: Present: tenderness, normal capillary refill, pedal edema, joint swelling, other (multiple defects in the joints from rheumatoid arthritis): Minimal. Edema. - Expanded Lower Extremity Exam Lower leg exam: Present: other (no calf tenderness). Absent: Homans' sign - Neurological Exam Neurological exam: Present: alert, oriented X3, CN II-XII intact - Psychiatric Psychiatric exam: Present: anxious - Skin Skin exam: Present: warm, dry, intact Internal Med - H&P Results - Labs CBC & Chem 7: 08/19/18 07:38 08/19/18 07:38 Labs: Short CBC 08/19/18 Range/Units 07:38 WBC 7.9 (4.3-11.1) K/mcL Hgb 11.8 (11.5-15.4) g/dL Hct 37.3 (35.3-44.9) % Plt Count 294 (140-400) K/mcL Neutrophils # 6.9 (1.6-8.9) K/mcL BMP 08/19/18 08/19/18 07:38 07:38 Sodium 136 137 Potassium 4.5 4.5 Chloride 102 102 Carbon Dioxide 27 26 BUN 17 16 Creatinine 0.63 0.64 Glucose 177 H 177 H Calcium 10.4 H 10.4 H Cardiac Enzymes 08/19/18 Range/Units 07:38 Troponin I < 0.03 (< 0.04) ng/mL Liver Function 08/19/18 Range/Units 07:38 Total Bilirubin 0.3 (0.3-1.0) mg/dL AST 14 (13-39) Units/L ALT 15 (7-52) Units/L Alkaline Phosphatase 97 (34-104) Units/L Albumin 4.3 (3.5-5.7) g/dL - Impressions ITS Impressions Chest X-Ray 08/19/18 07:14 IMPRESSION: 1. No active pulmonary disease. 2. COPD. D/ / Chadwick Ybarra MD / Chadwick Ybarra MD Interpreting Provider: Chadwick Ybarra MD - Assessment and plan (1) Acute exacerbation of chronic obstructive airways disease Current Visit: Yes Status: Acute Assessment and plan: The patient is chronic patient of COPD with 2.5 L home oxygen and COPD medication : Deulera, Singular , Ipra- albuterol inhalor. She was presented to ED with aggravated shortness of breath with dry cough. X-ray chest and CTA chest did not find any evidence of infiltration/consolidation/any evidence of aspiration in her lung. Acute viral bronchitis can be a triggering factor for COPD exacerbation. We have ordered respiratory viral panel and admitted IV antibiotic for suspected superadded bacterial infection. (2) Acute and chronic respiratory failure Current Visit: Yes Status: Acute Assessment and plan: The patient is chronic patient of COPD with home oxygen 2.5 L for long time, she got aggravated shortness of breath since . Now she is getting 3 L oxygen via nasal cannula. Her respiratory rate 20/minute and she is slightly dyspneic too. Now her oxygen saturation is up to 98% with 3.5 L of oxygen. COPD exacerbation might be the cause of acute on chronic respiratory failure with hypoxia. There is no any clinical signs of hypercapnia. Qualifiers: Respiratory failure complication: unspecified whether with hypoxia or hypercapnia Qualified Code(s): J96.20 - Acute and chronic respiratory failure, unspecified whether with hypoxia or hypercapnia (3) Viral bronchitis Current Visit: Yes Status: Acute Assessment and plan: The patient is chronic patient of COPD with chronic steroid inhaler, she admitted cough with a aggarvated shortness of breath. She further stated that she met a few family members with flulike symptoms during . She is having dry cough and aggravated shortness of breath since then. We have ordered respiratory viral panel for any viral sources. (4) Thrush, oral Current Visit: Yes Status: Acute Assessment and plan: The patient has pain in mouth and throat with difficulty in swallowing . It looks like oral fungal infection, we have advised her for nystatin swish and swallow. (5) Hyperlipidemia Current Visit: Yes Status: Chronic Assessment and plan: She is a patient of hyperlipidemia, taking Lipitor 10 MG at bedtime, will continue the same medication while she is in hospital. Qualifiers: Hyperlipidemia type: unspecified Qualified Code(s): E78.5 - Hyperlipidemia, unspecified (6) DVT prophylaxis Current Visit: Yes Status: Acute Assessment and plan: We have put Lovenox 40 SQ is a DVT prophylaxis while she is in inpatient (7) Sepsis Current Visit: Yes Status: Acute Assessment and plan: The patient does admit the criteria for sepsis, she does have elevated lactate 2.5 and tachycardia, otherwise she does not have any other features ie: Abnormal White count, hypotension, abnormal temperature, Fast respiratory rate 20, We will monitor for tachycardia and will repeat serum lactate level. Qualifiers: Sepsis type: sepsis due to unspecified organism Qualified Code(s): A41.9 - Sepsis, unspecified organism (8) Elevated d-dimer Current Visit: Yes Status: Acute Assessment and plan: The patient has elevated d-dimer done in ED; 860. CTA chest done in ED did not show any evidence of pulmonary embolism. We have put her on DVT prophylaxis - Time Spent With Patient Total time spent is greater than 50% in coordination of care (as documented) at patient's floor/unit and/or counseling patient:
[2018-08-19] MEDS ORDERED: Acetaminophen 325 MG TABLET PO PRN (09:57)
[2018-08-19 10:23] LABS: Bilirubin,Urine Negative (Negative); Blood,Urine Negative (Negative); Clarity,Urine Clear (Clear); Color,Urine Yellow (Yellow); Glucose,Urine (UA) Normal (Normal); Ketones,Urine Negative (Negative); Leukocyte Esterase,Urine Moderate (Negative); Nitrite,Urine Positive (Negative); PH,Urine 6.5 pH Units (5.0-8.0); Protein,Urine Negative (Neg-Trace); Specific Gravity,Urine > 1.030 (1.010-1.025); Urobilinogen,Urine Normal (Normal)
[2018-08-19 10:26] LABS: Bacteria,Urine Few per hpf (None-Few); Hyaline Casts,Urine None Seen per lpf (None-Few); RBC,Urine 0-3 per hpf (0-3); Squamous Epithelial Cell,Urine None Seen per lpf (None-Few); WBC,Urine 30-50 per hpf (0-3)
[2018-08-19] MEDS ORDERED: GuaiFENesin/Pseudophedrine TABLET PO PRN (10:30)
[2018-08-19] MEDS: Budesonide/Formoterol 160/4.5 1 PUFF INH IH SCH ×2 (11:27→20:44)
[2018-08-19] MEDS: Ipratropium/Albuterol Neb 3 ML IH SCH ×3 (11:38→20:33)
[2018-08-19] MEDS: Gabapentin 300 MG CAPSULE PO SCH ×3 (12:36→22:02)
[2018-08-19] MEDS: *HR* Enoxaparin 40 MG/0.4 ML SYRINGE SQ SCH (12:36)
[2018-08-19] MEDS: Nystatin SUSP 5 ML UD.LIQ PO SCH ×3 (12:36→22:06)
[2018-08-19 16:18] LABS: Adenovirus Not Detected (Not Detect); Bordetella Pertussis Not Detected (Not Detect); Chlamydophila pneumoniae Not Detected (Not Detect); Coronavirus 229E Not Detected (Not Detect); Coronavirus HKU1 Not Detected (Not Detect); Coronavirus NL63 Not Detected (Not Detect); Coronavirus OC43 Not Detected (Not Detect); Human Metapneumovirus Not Detected (Not Detect); Human Rhinovirus/Enterovirus Not Detected (Not Detect); Influenza A Subtype 2009 H1 Not Detected (Not Detect); Influenza A Untypeable Not Detected (Not Detect); Influenza B Not Detected (Not Detect); Mycoplasma pneumoniae Not Detected (Not Detect); Parainfluenza Virus 1 Not Detected (Not Detect); Parainfluenza Virus 2 Not Detected (Not Detect); Parainfluenza Virus 3 Not Detected (Not Detect); Parainfluenza Virus 4 Not Detected (Not Detect); Respiratory Syncytial Virus DETECTED (Not Detect)
[2018-08-19] MEDS: methylPREDNISolone 125 MG/2 ML VIAL IVP SCH (17:00)
[2018-08-19] MEDS: ALPRAZolam 0.5 MG TABLET PO PRN (17:00)
[2018-08-19] MEDS ORDERED: Ondansetron 4 MG/2 ML VIAL IVP ONE (21:32)
[2018-08-20] MEDS: Ipratropium/Albuterol Neb 3 ML IH SCH ×7 (00:09→23:35)
[2018-08-20] MEDS: methylPREDNISolone 125 MG/2 ML VIAL IVP SCH ×3 (00:53→15:08)
[2018-08-20 01:24] LABS: Basophils % 0.1 %; Hematocrit 34.3 % (35.3-44.9); Hemoglobin 10.8 g/dL (11.5-15.4); Lymphocytes # 0.5 K/mcL (0.6-4.6); Lymphocytes % 5.5 %; Mean Corpuscular HGB Conc 31.5 g/dL (31.6-35.5); Mean Corpuscular Volume 92.2 fL (83.0-100.0); Mean Platelet Volume 9.6 fL (9.4-12.4); Monocytes # 0.1 K/mcL (0.0-1.3); Monocytes % 1.3 %; Neutrophils # 8.1 K/mcL (1.6-8.9); Platelet Count 241 K/mcL (140-400); Red Blood Count 3.72 M/mcL (3.82-4.97); Red Cell Distribution Width 14.1 % (11.5-14.5); Segmented Neutrophils % 92.1 %
[2018-08-20 01:43] LABS: Alanine Aminotransferase 13 Units/L (7-52); Albumin 3.6 g/dL (3.5-5.7); Albumin/Globulin Ratio 1.7 (1.1-2.2); Alkaline Phosphatase 81 Units/L (34-104); Aspartate Amino Transferase 15 Units/L (13-39); BUN/Creatinine Ratio 30 (6-26); Bilirubin,Total 0.2 mg/dL (0.3-1.0); Blood Urea Nitrogen 17 mg/dL (8-23); Calcium 9.5 mg/dL (8.6-10.3); Carbon Dioxide 25 mEq/L (23-29); Chloride 103 mEq/L (98-107); Globulin 2.1 g/dL (2.4-3.5); Glucose 162 mg/dL (70-105); Osmolality,Calculated 285 (280-300); Potassium 4.3 mEq/L (3.5-5.1); Sodium 135 mEq/L (136-145); Total Protein 5.7 g/dL (6.4-8.9); eGFR For Non-African Americans > 60 (> 60)
[2018-08-20] MEDS: *HR* Enoxaparin 40 MG/0.4 ML SYRINGE SQ SCH (06:09)
[2018-08-20] MEDS: Budesonide/Formoterol 160/4.5 1 PUFF INH IH SCH ×2 (07:52→20:52)
[2018-08-20] MEDS: Nystatin SUSP 5 ML UD.LIQ PO SCH ×4 (07:58→20:30)
[2018-08-20] MEDS: Cholecalciferol (D-3) 1,000 UNIT TABLET PO SCH (07:58)
[2018-08-20] MEDS: Gabapentin 300 MG CAPSULE PO SCH ×3 (07:58→20:30)
[2018-08-20] MEDS: Levofloxacin 750 MG/150 ML 750 MG/150 ML BAG IVPB SCH (07:59)
--- NOTE | 2018-08-20 09:12 | Electrocardiograph Report ---
[facility] Test Date: 2018-08-19 Pat Name: Joanna Wellington Department: EXAM17 Room: 3B45 Gender: F Trailer Driver: : 1945 Requested By: True Doshi Order Number: [id number] Reading MD: Dylan Carranza Measurements Intervals Dawson Rate: 122 P: 81 ND: 177 QRS: 40 QRSD: 92 T: 87 QT: 306 QTc: 433 Interpretive Statements Sinus tachycardia Multiple premature complexes, vent & supraven Aberrant conduction of SV complex(es) Consider right atrial enlargement Electronically Signed On 08-20-2018 9:11:27 EST by Dylan Carranza
--- NOTE | 2018-08-20 14:16 | Internal Med Progress Note ---
Hospitalist Progress Note - Encounter Date of Encounter: 08/20/18 Time of Encounter: 10:00 - Subjective Interval History: Patient was seen and assessed at bedside at 10:00 AM. Patient reports productive cough, nausea, vomiting last 2 days. Her urine is indicative of UTI, however urine culture is negative and she has no urinary symptoms. Patient states that she is feeling some better, though she complains that she is still weak. She denies chest pain, diarrhea, abdominal pain, headache or dizziness. - Exam Vitals: Temp Pulse Resp BP Pulse Ox 98.0 F 97 15 105/64 96 08/20/18 10:45 08/20/18 10:45 08/20/18 10:45 08/20/18 10:45 08/20/18 11:07 Exam: General: Pt resting quietly on bed, no distress. Skin: pwd, no rashes, lesions, redness Neurological: Pt is alert and awake, oriented x 3, Speech is clear, PERRLA, EOMI, no nystagmus, no pronator drift. strength equal x 4 extremities HEENT: mucous mumbranes moist, no conjuctival pallor Neck: supple, no tracheal deviation, no lymphadenopathy, tenderness, no thyromegaly Heart: S1S2 heard without gallops, clicks, murmurs, no bradycardia or tachycardia, pt has +1 bilateral lower extremity peripheral edema, pedal and radial pulses palpable bilaterally. Lungs: clear throughout without wheezing, rales, or ronchi, respirations are unlabored Abdomen: soft and non tender with bowel sound present, no hepatomegaly. Psych: Normal affect with good eye contact - Assessment and Plan (1) Acute and chronic respiratory failure with hypoxia Current Visit: Yes Status: Acute Assessment and Plan: Improving. Pt is on 3L 02 via n/c continuous. This is back to her baseline home use. Continue to monitor and continue pulse ox. Plan as for COPD (2) Acute exacerbation of chronic obstructive airways disease Current Visit: Yes Status: Acute (3) DVT prophylaxis Current Visit: Yes Status: Acute Assessment and Plan: Lovenox sq (4) Elevated d-dimer Current Visit: Yes Status: Acute Assessment and Plan: Chest CTA negative for PE. Likely elevated in the setting of acute exacerbation of COPD. (5) Sepsis Current Visit: Yes Status: Acute Assessment and Plan: Resolved. Pt has no leukocytosis, fever, tachycardia, and she is normotensive. Continue IVF and IV antibiotics Monitor labs and vitals. DVT Prophylaxis: Lovenox - Time Spent with Patient Total time spent is greater than 50% in coordination of care (as documented) at patient's floor/unit and/or counseling patient: less than 15 minutes Plan of Care Discussed with: patient Internal Medicine: Result - Labs CBC & Chem 7: 08/20/18 01:13 08/20/18 01:13 Labs: Short CBC 08/20/18 Range/Units 01:13 WBC 8.7 (4.3-11.1) K/mcL Hgb 10.8 L (11.5-15.4) g/dL Hct 34.3 L (35.3-44.9) % Plt Count 241 (140-400) K/mcL Neutrophils # 8.1 (1.6-8.9) K/mcL BMP 08/20/18 01:13 Sodium 135 L Potassium 4.3 Chloride 103 Carbon Dioxide 25 BUN 17 Creatinine 0.56 L Glucose 162 H Calcium 9.5 Cardiac Enzymes 08/19/18 08/19/18 08/20/18 Range/Units 13:26 19:32 01:13 Troponin I 0.03 0.03 0.04 H* (< 0.04) ng/mL 08/20/18 Range/Units 06:53 Troponin I 0.03 (< 0.04) ng/mL Liver Function 08/20/18 Range/Units 01:13 Total Bilirubin 0.2 L (0.3-1.0) mg/dL AST 15 (13-39) Units/L ALT 13 (7-52) Units/L Alkaline Phosphatase 81 (34-104) Units/L Albumin 3.6 (3.5-5.7) g/dL - ABG Interpretation ABG results: PT/INR, D-dimer D-Dimer 860 ng/mLFEU (0-500) H 08/19/18 07:38 Consult Discharge Plan - Plan Referrals: Milo Bradley MD [Primary Care Provider] - 09/02/18 10:15 am (5) Sepsis Qualifiers: Sepsis type: sepsis due to unspecified organism Qualified Code(s): A41.9 - Sepsis, unspecified organism
[2018-08-20] MEDS: ALPRAZolam 0.5 MG TABLET PO PRN (19:53)
[2018-08-21] MEDS: methylPREDNISolone 125 MG/2 ML VIAL IVP SCH ×4 (01:38→22:59)
[2018-08-21] MEDS: Ipratropium/Albuterol Neb 3 ML IH SCH ×6 (03:28→23:43)
[2018-08-21 04:31] LABS: Basophils % 0.2 %; Hematocrit 34.7 % (35.3-44.9); Hemoglobin 10.9 g/dL (11.5-15.4); Immature Granulocytes % 0.6 % (0-4); Lymphocytes # 0.5 K/mcL (0.6-4.6); Lymphocytes % 3.4 %; Mean Corpuscular HGB Conc 31.4 g/dL (31.6-35.5); Mean Corpuscular Hemoglobin 28.3 pg (28.0-33.3); Mean Corpuscular Volume 90.1 fL (83.0-100.0); Mean Platelet Volume 9.4 fL (9.4-12.4); Monocytes # 0.5 K/mcL (0.0-1.3); Monocytes % 4.1 %; Platelet Count 275 K/mcL (140-400); Red Blood Count 3.85 M/mcL (3.82-4.97); Red Cell Distribution Width 14.3 % (11.5-14.5); Segmented Neutrophils % 91.7 %
[2018-08-21 04:48] LABS: BUN/Creatinine Ratio 28 (6-26); Blood Urea Nitrogen 18 mg/dL (8-23); Calcium 10.1 mg/dL (8.6-10.3); Carbon Dioxide 30 mEq/L (23-29); Chloride 100 mEq/L (98-107); Glucose 148 mg/dL (70-105); Osmolality,Calculated 285 (280-300); Potassium 4.4 mEq/L (3.5-5.1); Sodium 135 mEq/L (136-145); eGFR For Non-African Americans > 60 (> 60)
[2018-08-21] MEDS: ALPRAZolam 0.5 MG TABLET PO PRN ×3 (05:12→20:08)
[2018-08-21] MEDS: *HR* Enoxaparin 40 MG/0.4 ML SYRINGE SQ SCH (05:13)
[2018-08-21] MEDS: Budesonide/Formoterol 160/4.5 1 PUFF INH IH SCH ×2 (07:52→20:38)
[2018-08-21] MEDS: Nystatin SUSP 5 ML UD.LIQ PO SCH ×4 (10:18→20:08)
[2018-08-21] MEDS: Cholecalciferol (D-3) 1,000 UNIT TABLET PO SCH (10:18)
[2018-08-21] MEDS: Gabapentin 300 MG CAPSULE PO SCH ×3 (10:18→20:08)
[2018-08-21] MEDS: Levofloxacin 750 MG/150 ML 750 MG/150 ML BAG IVPB SCH (10:24)
--- NOTE | 2018-08-21 16:59 | Internal Med Progress Note ---
Hospitalist Progress Note - Encounter Date of Encounter: 08/21/18 Time of Encounter: 13:00 - Subjective Interval History: Patient was seen and assessed at bedside, she is resting quietly and in no acute distress. She continues with Levaquin and Solu-Medrol IVP. 5 shows that she is positive for RSV. She continues on oxygen at 3 L per nasal cannula, and states that she does have some cough but the main thing that is bothering her today is her anxiety she reports at home that she does take Xanax 0.5 mg morning noon and at night time. She is requesting that we change her timing on the Xanax 0.5 from every 8 hours to reflect more closely with her home schedule as she states that it works better for her in reducing her generalized anxiety disorder. On physical exam she continues to have dyspnea at rest decreased bibasilar breath sounds, wheezes. We will change the timing on her Route anti-anxiety medications. Continue with her from IV ATb and prednisone . - Exam Vitals: Temp Pulse Resp BP Pulse Ox 98.4 F 88 18 127/75 98 08/21/18 15:25 08/21/18 15:25 08/21/18 16:29 08/21/18 15:25 08/21/18 16:29 Exam: Stable continues with oxygen per nasal cannula - Assessment and Plan (1) Acute exacerbation of chronic obstructive airways disease Current Visit: Yes Status: Acute Assessment and Plan: Acute on chronic She is stable with oxygen at 3 L with SPO2 of 96% Continues with scattered wheezes and mild dyspnea with exertion. We will continue to monitor respiratory status as well as IV ATB (2) DVT prophylaxis Current Visit: Yes Status: Acute Assessment and Plan: We will continue with subcutaneous Lovenox and DVT prophylaxis per protocol (3) Sepsis Current Visit: Yes Status: Acute Assessment and Plan: Urinalysis in is in line with UTI however Route culture returned negative, CT of chest is negative when reviewed We will continue to monitor daily labs with the keeping an eye on white blood cell count, which I fully expect to keep decreasing as she is on IV Levaquin (4) Elevated d-dimer Current Visit: Yes Status: Acute Assessment and Plan: CT was negative for any signs of DVT PE We will repeat the d-dimer level in a.m. (5) Acute and chronic respiratory failure with hypoxia Current Visit: Yes Status: Acute Assessment and Plan: Remained stable with oxygen at 3 L we will continue with current treatment program DVT Prophylaxis: Lovenox - Time Spent with Patient Total time spent is greater than 50% in coordination of care (as documented) at patient's floor/unit and/or counseling patient: less than 15 minutes Plan of Care Discussed with: patient Internal Medicine: Result - Labs CBC & Chem 7: 08/21/18 03:45 08/21/18 03:45 Labs: Short CBC 08/21/18 Range/Units 03:45 WBC 13.1 H D (4.3-11.1) K/mcL Hgb 10.9 L (11.5-15.4) g/dL Hct 34.7 L (35.3-44.9) % Plt Count 275 (140-400) K/mcL Neutrophils # 12.0 H (1.6-8.9) K/mcL BMP 08/21/18 03:45 Sodium 135 L Potassium 4.4 Chloride 100 Carbon Dioxide 30 H BUN 18 Creatinine 0.65 Glucose 148 H Calcium 10.1 - ABG Interpretation ABG results: PT/INR, D-dimer D-Dimer 860 ng/mLFEU (0-500) H 08/19/18 07:38 - Impressions No evidence of pulmonary embolism or acute pulmonary abnormality. Moderate to severe emphysematous changes. Moderate hiatal hernia with moderate to large amount of GERD. Stable benign nodule in the posterior left upper lobe. Nodule has been unchanged at least since 2013. Consult Discharge Plan - Plan Referrals: Milo Bradley MD [Primary Care Provider] - 09/02/18 10:15 am (3) Sepsis Qualifiers: Sepsis type: sepsis due to unspecified organism Qualified Code(s): A41.9 - Sepsis, unspecified organism
[2018-08-22] MEDS: Ipratropium/Albuterol Neb 3 ML IH SCH ×6 (04:09→23:52)
[2018-08-22] MEDS: *HR* Enoxaparin 40 MG/0.4 ML SYRINGE SQ SCH (06:17)
[2018-08-22] MEDS: Budesonide/Formoterol 160/4.5 1 PUFF INH IH SCH ×2 (07:45→20:25)
[2018-08-22] MEDS: Cholecalciferol (D-3) 1,000 UNIT TABLET PO SCH (09:45)
[2018-08-22] MEDS: Gabapentin 300 MG CAPSULE PO SCH ×3 (09:46→19:56)
[2018-08-22] MEDS: methylPREDNISolone 125 MG/2 ML VIAL IVP SCH ×3 (09:46→17:39)
[2018-08-22] MEDS: Nystatin SUSP 5 ML UD.LIQ PO SCH ×4 (09:46→19:56)
[2018-08-22] MEDS: ALPRAZolam 0.5 MG TABLET PO PRN ×3 (09:46→19:56)
[2018-08-22] MEDS: Levofloxacin 750 MG/150 ML 750 MG/150 ML BAG IVPB SCH (09:46)
--- NOTE | 2018-08-22 18:38 | Internal Med Progress Note ---
Hospitalist Progress Note - Encounter Date of Encounter: 08/22/18 Time of Encounter: 18:36 - Subjective Interval History: no acute changes overnight, reports breathing is improving - Exam Vitals: Temp Pulse Resp BP Pulse Ox 97.7 F 89 16 121/74 98 08/22/18 15:32 08/22/18 15:32 08/22/18 16:13 08/22/18 15:32 08/22/18 16:13 Exam: PHYSICAL EXAMINATION: GENERAL: The patient is an elderly female , NAD, alert and oriented 3 HEENT: Head is normocephalic and atraumatic. Extraocular muscles are intact. Pupils are equal, round, and reactive to light and accommodation. NECK: Supple. No carotid bruits. No lymphadenopathy or thyromegaly. LUNGS: Clear/diminished with diffuse fine expiratory wheezing to auscultation B/L AP and L. HEART: Regular rate and rhythm, S1, S2 without murmur. ABDOMEN: Soft, nontender, and nondistended. Positive bowel sounds. No he patosplenomegaly was noted. EXTREMITIES: Without any cyanosis, clubbing, rash, lesions or edema. NEUROLOGIC: Cranial nerves II through XII are grossly intact. PSYCHIATRIC: Appropriate affect, denies SI/HI, without agitation or anxiety SKIN: No ulceration or induration present. - Assessment and Plan (1) Acute exacerbation of chronic obstructive airways disease Current Visit: Yes Status: Acute Assessment and Plan: Acute on chronicexacerbation of COPD She is stable with oxygen at 3 L with SPO2 of 96%;she reports wearing 3 L at home Continues withdiminished lungs and scattered wheezes as well as mild dyspnea with exertion. continue nebs, antibiotics, change steroids to twice a day then oral tomorrow If she continues to improve overnigh consider discharge (2) DVT prophylaxis Current Visit: Yes Status: Acute Assessment and Plan: subcutaneous Lovenox and DVT prophylaxis per protocol (3) Sepsis Current Visit: Yes Status: Resolved Assessment and Plan: resolved (4) Elevated d-dimer Current Visit: Yes Status: Acute (5) Acute and chronic respiratory failure with hypoxia Current Visit: Yes Status: Acute Assessment and Plan: treat as above - Time Spent with Patient Total time spent is greater than 50% in coordination of care (as documented) at patient's floor/unit and/or counseling patient: less than 15 minutes Plan of Care Discussed with: patient Internal Medicine: Result - Labs CBC & Chem 7: 08/21/18 03:45 08/21/18 03:45 - ABG Interpretation ABG results: PT/INR, D-dimer D-Dimer 547 ng/mLFEU (0-500) H 08/22/18 05:06 Consult Discharge Plan - Plan Referrals: Milo Bradley MD [Primary Care Provider] - 09/02/18 10:15 am (3) Sepsis Qualifiers: Sepsis type: sepsis due to unspecified organism Qualified Code(s): A41.9 - Sepsis, unspecified organism
[2018-08-22] MEDS ORDERED: Naloxone 0.4 MG/ML INJ IVP PRN (18:54)
[2018-08-23] MEDS: Ipratropium/Albuterol Neb 3 ML IH SCH ×5 (04:23→20:25)
[2018-08-23] MEDS: ALPRAZolam 0.5 MG TABLET PO PRN ×3 (04:36→20:31)
[2018-08-23] MEDS: *HR* Enoxaparin 40 MG/0.4 ML SYRINGE SQ SCH (04:37)
[2018-08-23] MEDS: methylPREDNISolone 125 MG/2 ML VIAL IVP SCH (04:37)
[2018-08-23 06:55] LABS: Basophils % 0.2 %; Hematocrit 36.7 % (35.3-44.9); Hemoglobin 11.3 g/dL (11.5-15.4); Immature Granulocytes % 1.5 % (0-4); Lymphocytes # 0.5 K/mcL (0.6-4.6); Lymphocytes % 4.8 %; Mean Corpuscular HGB Conc 30.8 g/dL (31.6-35.5); Mean Corpuscular Hemoglobin 28.6 pg (28.0-33.3); Mean Corpuscular Volume 92.9 fL (83.0-100.0); Mean Platelet Volume 9.4 fL (9.4-12.4); Monocytes # 0.9 K/mcL (0.0-1.3); Neutrophils # 8.5 K/mcL (1.6-8.9); Platelet Count 267 K/mcL (140-400); Red Blood Count 3.95 M/mcL (3.82-4.97); Red Cell Distribution Width 14.3 % (11.5-14.5); Segmented Neutrophils % 84.5 %
[2018-08-23 07:13] LABS: BUN/Creatinine Ratio 33 (6-26); Blood Urea Nitrogen 18 mg/dL (8-23); Calcium 9.8 mg/dL (8.6-10.3); Carbon Dioxide 31 mEq/L (23-29); Chloride 102 mEq/L (98-107); Glucose 128 mg/dL (70-105); Osmolality,Calculated 288 (280-300); Potassium 4.2 mEq/L (3.5-5.1); Sodium 137 mEq/L (136-145); eGFR For Non-African Americans > 60 (> 60)
[2018-08-23] MEDS: Budesonide/Formoterol 160/4.5 1 PUFF INH IH SCH ×2 (07:26→20:25)
[2018-08-23] MEDS: Cholecalciferol (D-3) 1,000 UNIT TABLET PO SCH (09:29)
[2018-08-23] MEDS: Nystatin SUSP 5 ML UD.LIQ PO SCH ×4 (09:29→20:31)
[2018-08-23] MEDS: Levofloxacin 750 MG/150 ML 750 MG/150 ML BAG IVPB SCH (09:29)
[2018-08-23] MEDS: Gabapentin 300 MG CAPSULE PO SCH ×3 (09:29→20:31)
--- NOTE | 2018-08-23 12:23 | Internal Med Progress Note ---
Hospitalist Progress Note - Encounter Date of Encounter: 08/23/18 Time of Encounter: 12:20 - Subjective Interval History: no acute changes overnight, reports breathing is improving but is still dyspneic with exertion. She did ambulate on room with portable pulse-ox while on supportive O2 and was hypoxic at 86%. She returned to 92% with rest. Given con tinued hypoxia she is at risk for further respiratory complications if d/c'd. - Exam Vitals: Temp Pulse Resp BP Pulse Ox 98.2 F 94 15 126/76 96 08/23/18 11:47 08/23/18 11:47 08/23/18 12:01 08/23/18 11:47 08/23/18 12:01 Exam: PHYSICAL EXAMINATION: GENERAL: The patient is an elderly female , NAD, alert and oriented 3 HEENT: Head is normocephalic and atraumatic. Extraocular muscles are intact. Pupils are equal, round, and reactive to light and accommodation. NECK: Supple. No carotid bruits. No lymphadenopathy or thyromegaly. LUNGS: Clear/diminished with persistent diffuse fine expiratory wheezing to auscultation B/L AP and L. HEART: Regular rate and rhythm, S1, S2 without murmur. ABDOMEN: Soft, nontender, and nondistended. Positive bowel sounds. No hepatosplenomegaly was noted. EXTREMITIES: Without any cyanosis, clubbing, rash, lesions or edema. NEUROLOGIC: Cranial nerves II through XII are grossly intact. PSYCHIATRIC: Appropriate affect, denies SI/HI, without agitation or anxiety SKIN: No ulceration or induration present. - Assessment and Plan (1) Acute exacerbation of chronic obstructive airways disease Current Visit: Yes Status: Acute Assessment and Plan: Acute on chronicexacerbation of COPD She is stable with oxygen at 3 L with SPO2 of 96%;she reports wearing 3 L at home Continues withdiminished lungs and scattered wheezes as well as mild dyspnea with exertion. continue nebs, antibiotics, change steroids to twice a day then oral tomorrow 08/23--AECOPD 2/2 viral infection with RSV. Condition stable overnight. She continues to have dyspnea with exertion and was hypoxic with activity while walking around room. I do believe that she is at risk for futher decline should she be discharged home today. Continue with plan as stated above. She will need long steroid taper at d/c (2) DVT prophylaxis Current Visit: Yes Status: Acute Assessment and Plan: subcutaneous Lovenox and DVT prophylaxis per protocol (3) Sepsis Current Visit: Yes Status: Resolved (4) Elevated d-dimer Current Visit: Yes Status: Acute (5) Acute and chronic respiratory failure with hypoxia Current Visit: Yes Status: Acute Assessment and Plan: treat as above - Time Spent with Patient Total time spent is greater than 50% in coordination of care (as documented) at patient's floor/unit and/or counseling patient: less than 15 minutes Plan of Care Discussed with: patient Internal Medicine: Result - Labs CBC & Chem 7: 08/23/18 05:58 08/23/18 05:58 Labs: Short CBC 08/23/18 Range/Units 05:58 WBC 10.1 (4.3-11.1) K/mcL Hgb 11.3 L (11.5-15.4) g/dL Hct 36.7 (35.3-44.9) % Plt Count 267 (140-400) K/mcL Neutrophils # 8.5 (1.6-8.9) K/mcL BMP 08/23/18 05:58 Sodium 137 Potassium 4.2 Chloride 102 Carbon Dioxide 31 H BUN 18 Creatinine 0.54 L Glucose 128 H Calcium 9.8 - ABG Interpretation ABG results: PT/INR, D-dimer D-Dimer 547 ng/mLFEU (0-500) H 08/22/18 05:06 Consult Discharge Plan - Plan Referrals: Milo Bradley MD [Primary Care Provider] - 09/02/18 10:15 am (3) Sepsis Qualifiers: Sepsis type: sepsis due to unspecified organism Qualified Code(s): A41.9 - Sepsis, unspecified organism
[2018-08-23] MEDS: predniSONE 20 MG TABLET PO SCH (12:45)
[2018-08-23] MEDS ORDERED: *HR* LORazepam 2 MG/ML VIAL IVP ONE (17:57)
[2018-08-24] MEDS: Ipratropium/Albuterol Neb 3 ML IH SCH ×5 (00:03→13:00)
[2018-08-24] MEDS: *HR* Enoxaparin 40 MG/0.4 ML SYRINGE SQ SCH (05:36)
[2018-08-24] MEDS: Budesonide/Formoterol 160/4.5 1 PUFF INH IH SCH ×2 (07:40→20:14)
[2018-08-24] MEDS: Gabapentin 300 MG CAPSULE PO SCH ×3 (09:04→19:57)
[2018-08-24] MEDS: levoFLOXacin 750 MG TABLET PO SCH (09:04)
[2018-08-24] MEDS: Cholecalciferol (D-3) 1,000 UNIT TABLET PO SCH (09:04)
[2018-08-24] MEDS: Nystatin SUSP 5 ML UD.LIQ PO SCH ×4 (09:04→19:57)
[2018-08-24] MEDS: predniSONE 20 MG TABLET PO SCH (09:04)
[2018-08-24] MEDS: ALPRAZolam 0.5 MG TABLET PO PRN ×2 (09:15→21:36)
[2018-08-24 11:24] LABS: Basophils % 0.3 %; Eosinophils % 0.2 %; Hematocrit 35.8 % (35.3-44.9); Hemoglobin 11.1 g/dL (11.5-15.4); Immature Granulocytes % 2.9 % (0-4); Lymphocytes # 0.9 K/mcL (0.6-4.6); Lymphocytes % 9.1 %; Mean Corpuscular Hemoglobin 28.7 pg (28.0-33.3); Mean Corpuscular Volume 92.5 fL (83.0-100.0); Mean Platelet Volume 9.2 fL (9.4-12.4); Monocytes # 1.4 K/mcL (0.0-1.3); Monocytes % 14.6 %; Platelet Count 254 K/mcL (140-400); Red Blood Count 3.87 M/mcL (3.82-4.97); Red Cell Distribution Width 14.4 % (11.5-14.5); Segmented Neutrophils % 72.9 %
[2018-08-24 11:43] LABS: BUN/Creatinine Ratio 31 (6-26); Blood Urea Nitrogen 18 mg/dL (8-23); Calcium 9.2 mg/dL (8.6-10.3); Carbon Dioxide 32 mEq/L (23-29); Chloride 103 mEq/L (98-107); Glucose 94 mg/dL (70-105); Osmolality,Calculated 290 (280-300); Potassium 3.8 mEq/L (3.5-5.1); Sodium 139 mEq/L (136-145); eGFR For Non-African Americans > 60 (> 60)
[2018-08-24] MEDS ORDERED: ALPRAZolam 0.5 MG TABLET PO ONE (13:02)
--- NOTE | 2018-08-24 14:56 | Internal Med Progress Note ---
Hospitalist Progress Note - Encounter Date of Encounter: 08/24/18 Time of Encounter: 11:00 - Subjective Interval History: This patient is new to me I did review medical records- I examined patient at bedside she is very agitated and requesting to go home - states that she is very anxious - advised patient that she is not ready to be discharged dt hypoxia and would need to sign out AMA. Patient agreed to stay after I explained we could increase frequency of anxiety medications and change duonebs to xopenex . Also would give her stool softener She agreed to stay - Exam Vitals: Temp Pulse Resp BP Pulse Ox 97.5 F L 109 16 152/87 95 08/24/18 12:08/24/18 12:01 08/24/18 13:08/24/18 12:08/24/18 13:01 Exam: PHYSICAL EXAMINATION: GENERAL: The patient is an elderly female , NAD, alert and oriented 3 HEENT: Head is normocephalic and atraumatic. Extraocular muscles are intact. Pupils are equal, round, and reactive to light and accommodation. NECK: Supple. No carotid bruits. No lymphadenopathy or thyromegaly. LUNGS: Clear/diminished with persistent diffuse fine expiratory wheezing to auscultation B/L AP and L. HEART: Regular rate and rhythm, S1, S2 without murmur. ABDOMEN: Soft, nontender, and nondistended. Positive bowel sounds. No h epatosplenomegaly was noted. EXTREMITIES: Without any cyanosis, clubbing, rash, lesions or edema. NEUROLOGIC: Cranial nerves II through XII are grossly intact. PSYCHIATRIC: Appropriate affect, denies SI/HI, without agitation or anxiety SKIN: No ulceration or induration present. - Assessment and Plan (1) Acute exacerbation of chronic obstructive airways disease Current Visit: Yes Status: Acute Assessment and Plan: Acute on chronicexacerbation of COPD She is stable with oxygen at 3 L with SPO2 of 96%;she reports wearing 3 L at home Continues withdiminished lungs and scattered wheezes as well as mild dyspnea with exertion. continue nebs, antibiotics, change steroids to twice a day then oral tomorrow 08/23--AECOPD 2/2 viral infection with RSV. Condition stable overnight. She c ontinues to have dyspnea with exertion and was hypoxic with activity while walking around room. I do believe that she is at risk for futher decline should she be discharged home today. Continue with plan as stated above. She will need long steroid taper at d/c 08/24/2018 AECOPD 2/2 viral infection with RSV. Condition stable overnight. She continues to have dyspnea with exertion and was hypoxic with activity while walking around room. I do believe that she is at risk for futher decline should she be discharged home today She ambulated in the room on 4 L NC O2 and sats drop to 78%- She normally wears 3L NC at home continuously She will require long steroid taper at d/c (2) DVT prophylaxis Current Visit: Yes Status: Acute Assessment and Plan: subcutaneous Lovenox and DVT prophylaxis per protocol (3) Sepsis Current Visit: Yes Status: Resolved Assessment and Plan: resolved (4) Elevated d-dimer Current Visit: Yes Status: Acute Assessment and Plan: CT was negative for any signs of DVT PE d-dimer down from admission. (5) Acute and chronic respiratory failure with hypoxia Current Visit: Yes Status: Acute Assessment and Plan: treat as above - Time Spent with Patient Total time spent is greater than 50% in coordination of care (as documented) at patient's floor/unit and/or counseling patient: Internal Medicine: Result - Labs CBC & Chem 7: 08/24/18 11:00 08/24/18 11:00 Labs: Short CBC 08/24/18 Range/Units 11:00 WBC 9.6 (4.3-11.1) K/mcL Hgb 11.1 L (11.5-15.4) g/dL Hct 35.8 (35.3-44.9) % Plt Count 254 (140-400) K/mcL Neutrophils # 7.0 (1.6-8.9) K/mcL BMP 08/24/18 11:00 Sodium 139 Potassium 3.8 Chloride 103 Carbon Dioxide 32 H BUN 18 Creatinine 0.58 L Glucose 94 Calcium 9.2 - ABG Interpretation ABG results: PT/INR, D-dimer D-Dimer 547 ng/mLFEU (0-500) H 08/22/18 05:06 Consult Discharge Plan - Plan Referrals: Milo Bradley MD [Primary Care Provider] - 09/02/18 10:15 am (3) Sepsis Qualifiers: Sepsis type: sepsis due to unspecified organism Qualified Code(s): A41.9 - Sepsis, unspecified organism
[2018-08-24] MEDS: Levalbuterol Neb 1.25 MG/3 ML IH SCH ×2 (15:37→20:14)
[2018-08-24] MEDS: MethylPREDNISolone 40 MG/ML VIAL IVP SCH (18:01)
[2018-08-25] MEDS: Levalbuterol Neb 1.25 MG/3 ML IH SCH ×4 (00:30→11:13)
[2018-08-25] MEDS: *HR* Enoxaparin 40 MG/0.4 ML SYRINGE SQ SCH (05:29)
[2018-08-25] MEDS: MethylPREDNISolone 40 MG/ML VIAL IVP SCH (05:30)
[2018-08-25 05:43] LABS: Basophils % 0.5 %; Hematocrit 36.9 % (35.3-44.9); Hemoglobin 11.3 g/dL (11.5-15.4); Lymphocytes # 0.7 K/mcL (0.6-4.6); Lymphocytes % 8.1 %; Mean Corpuscular HGB Conc 30.6 g/dL (31.6-35.5); Mean Corpuscular Hemoglobin 28.5 pg (28.0-33.3); Mean Corpuscular Volume 92.9 fL (83.0-100.0); Mean Platelet Volume 9.3 fL (9.4-12.4); Monocytes # 0.9 K/mcL (0.0-1.3); Neutrophils # 6.7 K/mcL (1.6-8.9); Platelet Count 247 K/mcL (140-400); Red Blood Count 3.97 M/mcL (3.82-4.97); Red Cell Distribution Width 14.3 % (11.5-14.5); Segmented Neutrophils % 77.4 %
[2018-08-25 06:00] LABS: BUN/Creatinine Ratio 34 (6-26); Blood Urea Nitrogen 19 mg/dL (8-23); Calcium 9.3 mg/dL (8.6-10.3); Carbon Dioxide 31 mEq/L (23-29); Chloride 103 mEq/L (98-107); Glucose 130 mg/dL (70-105); Osmolality,Calculated 288 (280-300); Potassium 4.2 mEq/L (3.5-5.1); Sodium 137 mEq/L (136-145); eGFR For Non-African Americans > 60 (> 60)
[2018-08-25] MEDS: Budesonide/Formoterol 160/4.5 1 PUFF INH IH SCH (07:37)
[2018-08-25] MEDS: ALPRAZolam 0.5 MG TABLET PO PRN (08:58)
[2018-08-25] MEDS: levoFLOXacin 750 MG TABLET PO SCH (08:58)
[2018-08-25] MEDS: Nystatin SUSP 5 ML UD.LIQ PO SCH (08:58)
[2018-08-25] MEDS: Gabapentin 300 MG CAPSULE PO SCH (08:58)
[2018-08-25] MEDS: Cholecalciferol (D-3) 1,000 UNIT TABLET PO SCH (08:58)
--- NOTE | 2018-08-25 11:21 | Discharge Summary ---
- NOTES TO OUTPATIENT PROVIDER Notes to Outpatient Provider: COPD excerbation with RSV- on steroid taper Date of Encounter: 08/25/18 Time of Encounter: 11:18 - Discharge Diagnosis (1) Acute exacerbation of chronic obstructive airways disease Priority: Primary Status: Acute (2) Sepsis Priority: Secondary Status: Resolved Qualifiers: Sepsis type: sepsis due to unspecified organism Qualified Code(s): A41.9 - Sepsis, unspecified organism (3) Elevated d-dimer Priority: Secondary Status: Acute (4) Acute and chronic respiratory failure with hypoxia Priority: Secondary Status: Acute Hospital course: Ms. Wellington is a 72 year old female COPD with home oxygen 3 L nasal cannula, hyperlipidemia GERD, former smoker, Anxiety, depression, bipolar disorder, Neuropathy was presented to ED for aggravated shortness of breath, cough without sputum for last few days. Chest x-ray completed denies any evidence of pneumon ia or infiltrate lab work with elevated white count lactate was 2.5 and d-dimer was 860 CTA chest was completed which denies any evidence of pulmonary embolism or pneumonia. Urinalysis was indicative of UTI have her culture was negative she had no urinary symptoms and is slightly treated as sepsis due to elevated white count tachycardia-she was found to have RSV -she was given IV steroids as well as antibiotics bronchodilators she did have dyspnea on exertion after a few days her respiratory state did not improve wheezing has diminished patient's tolerating a ventilating in the room with oxygen at home setting maintaining sats approximately 93%. No cough at this time vital signs are stable. I am for the patient that should be given a prescription of a steroid taper and she will follow-up with her primary care provider as an outpatient. We did discuss possible home health however patient declines states that her son will take care of her. She is hemodynamically stable at this time as ready for discharge Discharge discussed with: patient - Time Spent with Patient Total time spent providing and/or coordinating discharge services: - Discharge Medications Prescriptions: predniSONE [PredniSONE] 10 mg PO DAILY #30 tablet Home Medications: ALPRAZolam [Xanax 0.5 MG Tablet] 0.5 mg PO TID PRN 08/19/18 [History] Albuterol Sulfate [Albuterol Inhaler] 1 - 2 puff IH Q4-6H PRN 08/19/18 [History] Atorvastatin [Lipitor] 10 mg PO HS 08/19/18 [History] Cholecalciferol (D-3) [Vitamin D] 4,000 unit PO DAILY 08/19/18 [History] Gabapentin [Neurontin] 300 mg PO TID 08/19/18 [History] Ipratropium/Albuterol Sulfate [Iprat-Albut 0.5-3(2.5) mg/3 ml] 3 ml IH QID PRN 08/19/18 [History] Mometasone/Formoterol [Dulera 200 Mcg/5 Mcg Inhaler] 2 puff IH BID 08/19/18 [History] Montelukast [Singulair] 10 mg PO DAILY 08/19/18 [History] Omeprazole [PriLOSEC] 40 mg PO DAILY 08/19/18 [History] Albuterol Sulfate [Proair Hfa] 2 puff IH TID 08/21/18 [History] predniSONE [PredniSONE] 10 mg PO DAILY #30 tablet 08/25/18 [Rx] Allergies/Adverse Reactions: Allergy/AdvReac Type Severity Reaction Status Date / Time fluticasone Allergy Headache Verified 06/10/17 15:01 [From Advair Diskus] iodine Allergy Rash Verified 06/10/17 15:01 salmeterol Allergy Headache Verified 06/10/17 15:01 [From Advair Diskus] aspirin AdvReac can't take Verified 06/10/17 15:01 because of her asthma Date of admission: 08/22/18 18:54 Primary care physician: Milo Bradley MD Discharging clinician: Celi Cantu Anticipated date of discharge: 08/25/18 - Constitutional Vitals: Temp Pulse Resp BP Pulse Ox 97.4 F L 85 18 139/77 99 08/25/18 07:15 08/25/18 07:15 08/25/18 07:40 08/25/18 07:15 08/25/18 07:40 General appearance: Present: mild distress, A&O X 3, answers questions appropriately Exam: PHYSICAL EXAMINATION: GENERAL: The patient is an elderly female , NAD, alert and oriented 3 HEENT: Head is normocephalic and atraumatic. Extraocular muscles are intact. Pupils are equal, round, and reactive to light and accommodation. NECK: Supple. No carotid bruits. No lymphadenopathy or thyromegaly. LUNGS: Clear/faint diffuse fine expiratory wheezing to auscultation B/L AP and L. HEART: Regular rate and rhythm, S1, S2 without murmur. ABDOMEN: Soft, nontender, and nondistended. Positive bowel sounds. No hepatosplenomegaly was noted. EXTREMITIES: Without any cyanosis, clubbing, rash, lesions or edema. NEUROLOGIC: Cranial nerves II through XII are grossly intact. PSYCHIATRIC: Appropriate affect, denies SI/HI, without agitation or anxiety SKIN: No ulceration or induration present. - Patient Status Disposition: Home, Self-Care Condition: Fair Functional capacity at discharge: uses cane/walker Overall status at discharge: patient is back to baseline - Discharge Instructions Instructions: Acute Respiratory Distress Syndrome (DC), Chronic Obstructive Pulmonary Disease (DC) Follow Up With: Milo Bradley MD [Primary Care Provider] - 09/02/18 10:15 am - Diet and Activity Activity: increase activity as tolerated, wear oxygen at all times Diet: advance to your usual diet
[2018-08-25 11:53] VITALS: BP 112/70
== END 2018-08-25 13:21 | disposition home or self-care (01) | DRG 871 ==
LOC: EMEROOARM 07:11 → 3BNU 07:11
PROVIDERS: ADMIT Hospitalist; ATTEND Hospitalist

== ENCOUNTER 2019-06-04 14:44 | Observation (INO) ==
[2019-06-04] MEDS ORDERED: *HR* LORazepam 2 MG/ML VIAL IM STA (15:13)
[2019-06-04 16:05] LABS: Basophils % 0.6 %; Eosinophils # 0.1 K/mcL (0.0-0.6); Eosinophils % 1.8 %; Hematocrit 35.1 % (35.3-44.9); Hemoglobin 11.1 g/dL (11.5-15.4); Immature Granulocytes % 0.2 % (0-4); Lymphocytes # 1.3 K/mcL (0.6-4.6); Mean Corpuscular HGB Conc 31.6 g/dL (31.6-35.5); Mean Corpuscular Hemoglobin 28.1 pg (28.0-33.3); Mean Corpuscular Volume 88.9 fL (83.0-100.0); Mean Platelet Volume 9.2 fL (9.4-12.4); Monocytes # 0.6 K/mcL (0.0-1.3); Monocytes % 8.8 %; Neutrophils # 4.5 K/mcL (1.6-8.9); Platelet Count 240 K/mcL (140-400); Red Blood Count 3.95 M/mcL (3.82-4.97); Red Cell Distribution Width 14.2 % (11.5-14.5); Segmented Neutrophils % 68.6 %; White Blood Count 6.6 K/mcL (4.3-11.1)
[2019-06-04 16:14] LABS: Activated Partial Thrombo Time 29.9 Seconds (26.0-36.0)
[2019-06-04 16:26] LABS: BUN/Creatinine Ratio 24 (6-26); Blood Urea Nitrogen 13 mg/dL (8-23); Calcium 9.6 mg/dL (8.6-10.3); Carbon Dioxide 29 mEq/L (23-29); Chloride 98 mEq/L (98-107); Glucose 110 mg/dL (70-105); Osmolality,Calculated 277 (280-300); Potassium 4.2 mEq/L (3.5-5.1); Sodium 133 mEq/L (136-145); eGFR For African Americans > 60 (> 60); eGFR For Non-African Americans > 60 (> 60)
[2019-06-04 16:27] LABS: Troponin I < 0.03 ng/mL (< 0.04)
[2019-06-04 18:50] LABS: Bilirubin,Urine Negative (Negative); Blood,Urine Negative (Negative); Clarity,Urine Clear (Clear); Color,Urine Yellow (Yellow); Glucose,Urine (UA) Normal (Normal); Ketones,Urine Negative (Negative); Leukocyte Esterase,Urine Moderate (Negative); Nitrite,Urine Negative (Negative); Protein,Urine Negative (Neg-Trace); Urobilinogen,Urine Normal (Normal)
[2019-06-04 18:51] LABS: Bacteria,Urine None Seen per hpf (None-Few); Hyaline Casts,Urine None Seen per lpf (None-Few); RBC,Urine 0-3 per hpf (0-3); Squamous Epithelial Cell,Urine Many per lpf (None-Few); WBC,Urine 15-30 per hpf (0-3)
[2019-06-05] MEDS ORDERED: Naloxone 0.4 MG/ML INJ IVP PRN (01:22)
[2019-06-05] MEDS ORDERED: ALPRAZolam 0.5 MG TABLET PO PRN (01:24)
[2019-06-05 02:03] LABS: Hematocrit 35.1 % (35.3-44.9); Hemoglobin 10.8 g/dL (11.5-15.4); Mean Corpuscular HGB Conc 30.8 g/dL (31.6-35.5); Mean Corpuscular Hemoglobin 27.8 pg (28.0-33.3); Mean Corpuscular Volume 90.2 fL (83.0-100.0); Mean Platelet Volume 8.8 fL (9.4-12.4); Platelet Count 274 K/mcL (140-400); Red Blood Count 3.89 M/mcL (3.82-4.97); Red Cell Distribution Width 14.3 % (11.5-14.5); White Blood Count 6.5 K/mcL (4.3-11.1)
[2019-06-05 02:23] LABS: Alanine Aminotransferase 7 Units/L (7-52); Albumin 3.6 g/dL (3.5-5.7); Albumin/Globulin Ratio 2.1 (1.1-2.2); Alkaline Phosphatase 50 Units/L (34-104); Aspartate Amino Transferase 11 Units/L (13-39); BUN/Creatinine Ratio 25 (6-26); Bilirubin,Total 0.2 mg/dL (0.3-1.0); Blood Urea Nitrogen 13 mg/dL (8-23); Calcium 9.5 mg/dL (8.6-10.3); Carbon Dioxide 30 mEq/L (23-29); Chloride 101 mEq/L (98-107); Globulin 1.7 g/dL (2.4-3.5); Glucose 109 mg/dL (70-105); Osmolality,Calculated 277 (280-300); Potassium 4.2 mEq/L (3.5-5.1); Sodium 133 mEq/L (136-145); Total Protein 5.3 g/dL (6.4-8.9); eGFR For African Americans > 60 (> 60); eGFR For Non-African Americans > 60 (> 60)
[2019-06-05] MEDS: Ipratropium/Albuterol Neb 3 ML IH PRN ×2 (04:15→14:31)
[2019-06-05] MEDS ORDERED: *HR* Heparin 5,000 UNIT/ML VIAL SQ SCH (06:00)
[2019-06-05] MEDS ORDERED: Acetaminophen 325 MG TABLET PO PRN (08:38)
[2019-06-05] MEDS ORDERED: MOMETASONE NS SCH (09:00)
[2019-06-05] MEDS ORDERED: Gabapentin 300 MG CAPSULE PO SCH (09:00)
[2019-06-05] MEDS ORDERED: 0.9 % Sodium Chloride 1,000 ML IVC ONE (09:13)
[2019-06-05] MEDS ORDERED: Budesonide/Formoterol 160/4.5 1 PUFF INH IH SCH (10:00)
[2019-06-05 11:29] VITALS: BP 147/73
[2019-06-06] MEDS ORDERED: Sennosides 8.6 MG TABLET PO ONE (10:20)
== END 2019-06-05 14:43 | disposition home or self-care (01) ==
LOC: EMEROOARM 14:44 → 3BNU 14:44 → SUATTDRO 20:06 → 3BNU 20:46
PROVIDERS: ADMIT Internal Medicine; ATTEND Family Medicine